=== PATIENT | female | born 1945 | race Caucasian/White ===

== ENCOUNTER → 2020-04-16 08:10 | Outpatient (CLI) | payer MEDICARE, OTHER, SELFPAY ==
--- NOTE | 2020-04-16 | DI.RAD.S_ITS ---
PROCEDURE: FL BARIUM SWALLOW W SPEECH INDICATIONS: Dysphagia COMPARISON: None. TECHNIQUE: Examination was conducted in conjunction with speech pathology per standard protocol. In the lateral projection, filming was performed of the patient swallowing. AP projection filming may also be performed with patient swallowing. COMPARISON: FINDINGS: Function: The oral preparatory phase appears normal, with proper containment. The subsequent oral propulsive phase, pharyngeal phase, and esophageal phase of swallowing also appear normal with all proffered substances. Single episode of laryngotracheal penetration noted during consumption of thin liquid. No laryngotracheal aspiration. No pathologic vallecular pooling. There is significant delayed passage of 13 millimeter barium tablet in the thoracic esophagus at the level of the aortic arch. Morphology: No cricopharyngeal bar is identified. No cervical esophageal webs. No Zenker's diverticulum. No strictures. IMPRESSION: 1. No laryngotracheal aspiration. 2. Significant delayed passage of 13 millimeter barium tablet through the esophagus at the level of the aortic arch. Recommend endoscopy to exclude esophageal stricture and CT scan of the chest with contrast to exclude extrinsic mass or aortic aneurysm. Dictated by: Nay Cortes MD, PhD on 04/16/2020 at 9:38 Approved by: Nay Cortes MD, PhD on 04/16/2020 at 9:40
--- NOTE | 2020-04-16 13:59 | ST.SWALLOW ---
Visit Care Team Role Provider Type Chela Garrett MD Primary Care Provider Non-Staff Specialty: Medical Address: [address] [place] [address], [place], [address] Email: Ellis Ruiz MD Attending Provider Physician Referring Provider Specialty: Ear, Nose, Throat Address: [address] [place] [address], [id number] Email: [email or web address] Modified Barium Swallow Study SPRINKLER WORKER Modified Barium Swallow Study Start: 04/16/20 10:00 Freq: Status: Active Protocol: Document 04/16/20 10:01 LL (Rec: 04/16/20 10:22 LL [email or web address]) Modified Barium Swallow Study Total Time Visit Start Time 08:30 Visit Stop Time 09:30 Total Visit Minutes 60 Visit Information Insurance Information [facility] Referral Referring Physician Ellis Ruiz MD Reason for Referral Dysphagia, unspecified; cough, and postnasal drip Setting Setting Outpatient Care Patient Information Identification Type Name,Date of ,ID Card Patient History Tamara Gan is a 75-year-old female, who was seen for an outpatient Modified Barium Swallow Study (MBSS) per MD order due to concerns for dysphagia. Per patient report, PMHx significant for history of thyroidectomy (6 years ago) , postnasal drip, cough, history of bilateral salpingo- oophorectomy with chemotherapy and radiation treatment ( within last 1-2 years), and worsening dysphagia over the last year. Patient reported frequent coughing with and without PO, increased coughing with thin liquids, and frequent globus sensation ( pocketing, sticking sensations ). Patient reported that her coughing episodes feel like her throat is going to rip out due to the intensity and effort needed to provide relief, resulting in increased vocal hoarseness. Subjective Observations Patient arrived on time and unaccompanied for this study. Patient alert, oriented x 4, and agreeable to participate in MBSS this care date. Patient denied any pain and or discomfort throughout study. Patient Positioning Position View Lat-A/P Imaging Lateral View Textures Administered Trials Presented Thin Liquid via Cup,Thin Liquid via Straw,[place] Liquid via Cup,Honey Liquid via Spoon,Pudding Thick Liquid via Spoon,Dysphagia Mechanical Textures,Regular Textures, Barium Tablet Oral Phase Source: MBSIMP (TM) (C) Bolus Specific Scoring Grid Lip Closure WFL Tongue Control During Bolus Hold WFL Bolus Prep/Mastication WFL Bolus Transport/Lingual Motion WFL A/P Lingual Propulsion Delay No Oral Residue Minimal Impairment Residue Clearing WFL Nasal Regurgitation No Additional Oral Phase Observations Adequate labial seal with no anterior loss or difficulty with labial acceptance visualized across all consistencies. Adequate oral bolus containment visualized with 10mL of thin liquid barium with bolus hold. Minimal oral residue of contrast observed post-swallow across all consistencies. Oral residue cleared with sequential dry swallows. Adequate mastication pattern visualized with dysphagia mechanical and regular solid trials. Pharyngeal Phase Source: MBSIMP (TM) (C) Bolus Specific Scoring Grid Delayed Initiation of Pharyngeal Swallow No Soft Palate Elevation WFL Tongue Base Strength/Range of Motion WFL Residue Along the Tongue Base Yes: Mild - cleared with sequential dry swallows Clearance of Residue Along Tongue Base WFL Laryngeal Elevation Mild Impairment Anterior Hyoid Movement Mild Impairment Epiglottic Range of Motion Mild Impairment Vallecular Residue Yes: Mild vallecular residue post-swallow Clearance of Vallecular Residue Minimal Impairment Laryngeal Vestibular Closure WFL Pharyngeal Stripping Wave Mild Impairment Pharyngeal Contraction Mild Impairment Posterior Pharyngeal Wall Residue Yes: trace residue - cleared with sequential dry swallows Clearance of Posterior Pharyngeal Wall WFL Residue Upper Esophageal Sphincter Opening WFL Residue in the Pyriform Sinuses Yes: Mild pyriform sinuses residue post-swallow Clearance of Residue in the Pyriform Minimal Impairment Sinuses Esophageal Clearance Upright Position Mild Impairment Pharyngoesophageal Backflow Observed Yes: Minimal Additional Pharyngeal Phase Observations Timely trigger of the pharyngeal swallow, as determined by the location of the head of the bolus at the moment of the initial hyoid burst. Pharyngeal triggered occurred at the level of the valleculae with 2 instances of pooling to the pyriforms during the swallow with thin liquid trials. Diminished pharyngeal stripping wave ( lateral and AP view) visualized with thin liquid trials. Visualized minimal posterior pharyngeal wall residue and mild vallecular and pyriform residue post- swallow with thin liquids. Minimal pharyngeal residue visualized with thicker consistencies primarily at the base of the valleculae due to incomplete epiglottic inversion. Visualized two anterior laryngeal pouches ( one above and one below the epiglottis) during the swallow with clearance / draining observed after initial swallow , increasing pharyngeal residue post-swallow. Utilization of double swallow / dry swallow assisted in clearing remaining pharyngeal residue from the two anterior laryngeal pouches visualized. Single episode of laryngotracheal penetration with full clearance visualized with thin liquid trial. No aspiration visualized across all consistencies. A/P View Textures Administered Trials Presented Thin Liquid via Cup,Barium Tablet A/P View Observations Pharyngeal Contraction Mild Impairment Esophageal Function Poor Motility Additional Observations Per MD report and SPRINKLER WORKER observation, significant delayed passage of 13 millimeter barium tablet through the esophagus at the level of the aortic arch visualized. Vocal fold function appeared to have been within functional limits. Clinical Impressions Dysphagia Type Mild oropharyngeal dysphagia Findings Patient currently presents with mild oropharyngeal dysphagia characterized by minimal oral residue (with all consistencies - cleared with sequential dry swallows), decreased laryngeal elevation, decreased laryngeal excursion , incomplete epiglottic inversion, diminished pharyngeal stripping wave, mild pharyngeal residue post- swallow, two anterior laryngeal pouches during the swallow with clearance / draining observed after initial swallow, and one single episode of penetration above the level of the vocal folds with full clearance with thin liquid trial. The patient is a mild aspiration risk due to above listed deficits. Risk mitigated given adherence to diet recommendations and PO precautions. SPRINKLER WORKER reviewed MBSS results in detail and recommended patient consume a general diet ( regular solids and thin liquids) with use of a double swallow with thin liquids to clear remaining pharyngeal residue after initial swallow. SPRINKLER WORKER recommended medications whole with thin liquid and / or medications whole in puree to assist in clearing tablet in esophagus (e.g., esophageal dysmotility visualized with whole barium tablet with water requiring multiple sips to clear tablet into stomach) and decrease / eliminate globus sensation. SPRINKLER WORKER recommended outpatient speech therapy to receive additional dysphagia training / education and further assessment of patient' s vocal fold functioning to determine appropriate treatment goals to improve patient's vocal quality. SPRINKLER WORKER reviewed and demonstrated several voice / vocal hygiene strategies (e.g., silent cough and nasal sniff / ?sh? audible exhale) to reduce hard vocal fold closure and improve patient?s overall vocal quality / health. SPRINKLER WORKER also provided patient with written education to increase understanding and adequate carryover of strategies. Patient verbalized understanding of education / training. Patient reported that she has several upcoming appointments and procedures, but would reach out later this year to begin speech therapy. Rehabilitation Potential Good Patient Appropriate for Therapy Yes: Recommend outpatient and/ or home health speech therapy Recommendations Diet Liquids Order Thin Diet Order Regular Medication Recommendation Whole,Whole in Carrier Aspiration Precautions Recommended Precautions Upright at 90 Degrees,Small Bites/Sips,Double Swallow Treatment Plan Therapy Recommendations Compensatory Strategy Education,GERD/Vocal Hygiene Education Recommended Referrals Primary Care Physician,GI Consult,ENT Consult Compensatory Strategies Recommendations Sitting Upright (90 deg), Double Swallow,Small Bites and Sips Additional Recommendations/Comments - ENT consult to visualize anatomy and physiology of the vocal folds given patient's hoarse vocal quality and poor vocal hygiene behaviors (e.g., frequent coughing and throat clearing). - GI consult to further assess patient's gastrointestinal tract due to esophageal dysmotility visualized with barium tablet. - Per radiologist's report, recommend endoscopy to exclude esophageal stricture and CT scan of the chest with contrast to exclude extrinsic mass or aortic aneurysm. - PCP to continue to follow their plan of care (POC).
--- NOTE | 2020-04-16 14:18 | ST.SWALLOW ---
Visit Care Team Role Provider Type Chela Garrett MD Primary Care Provider Non-Staff Specialty: Medical Address: [address] [place] [address], [place], [address] Email: Ellis Ruiz MD Attending Provider Physician Referring Provider Specialty: Ear, Nose, Throat Address: [address] [place] [address], [address] Email: [email or web address] Modified Barium Swallow Study MACHINE TURNER Modified Barium Swallow Study Start: 04/16/20 10:00 Freq: Status: Active Protocol: Document 04/16/20 10:01 LL (Rec: 04/16/20 10:22 LL [email or web address]) Modified Barium Swallow Study Total Time Visit Start Time 08:30 Visit Stop Time 09:30 Total Visit Minutes 60 Visit Information Insurance Information [facility] Referral Referring Physician Ellis Ruiz MD Reason for Referral Dysphagia, unspecified; cough, and postnasal drip Setting Setting Outpatient Care Patient Information Identification Type Name,Date of ,ID Card Patient History Tamara Gan is a 75-year-old female, who was seen for an outpatient Modified Barium Swallow Study (MBSS) per MD order due to concerns for dysphagia. Per patient report, PMHx significant for history of thyroidectomy (6 years ago) , postnasal drip, cough, history of bilateral salpingo- oophorectomy with chemotherapy and radiation treatment ( within last 1-2 years), and worsening dysphagia over the last year. Patient reported frequent coughing with and without PO, increased coughing with thin liquids, and frequent globus sensation ( pocketing, sticking sensations ). Patient reported that her coughing episodes feel like her throat is going to rip out due to the intensity and effort needed to provide relief, resulting in increased vocal hoarseness. Subjective Observations Patient arrived on time and unaccompanied for this study. Patient alert, oriented x 4, and agreeable to participate in MBSS this care date. Patient denied any pain and or discomfort throughout study. Patient Positioning Position View Lat-A/P Imaging Lateral View Textures Administered Trials Presented Thin Liquid via Cup,Thin Liquid via Straw,[place] Liquid via Cup,Honey Liquid via Spoon,Pudding Thick Liquid via Spoon,Dysphagia Mechanical Textures,Regular Textures, Barium Tablet Oral Phase Source: MBSIMP (TM) (C) Bolus Specific Scoring Grid Lip Closure WFL Tongue Control During Bolus Hold WFL Bolus Prep/Mastication WFL Bolus Transport/Lingual Motion WFL A/P Lingual Propulsion Delay No Oral Residue Minimal Impairment Residue Clearing WFL Nasal Regurgitation No Additional Oral Phase Observations Adequate labial seal with no anterior loss or difficulty with labial acceptance visualized across all consistencies. Adequate oral bolus containment visualized with 10mL of thin liquid barium with bolus hold. Minimal oral residue of contrast observed post-swallow across all consistencies. Oral residue cleared with sequential dry swallows. Adequate mastication pattern visualized with dysphagia mechanical and regular solid trials. Pharyngeal Phase Source: MBSIMP (TM) (C) Bolus Specific Scoring Grid Delayed Initiation of Pharyngeal Swallow No Soft Palate Elevation WFL Tongue Base Strength/Range of Motion WFL Residue Along the Tongue Base Yes: Mild - cleared with sequential dry swallows Clearance of Residue Along Tongue Base WFL Laryngeal Elevation Mild Impairment Anterior Hyoid Movement Mild Impairment Epiglottic Range of Motion Mild Impairment Vallecular Residue Yes: Mild vallecular residue post-swallow Clearance of Vallecular Residue Minimal Impairment Laryngeal Vestibular Closure WFL Pharyngeal Stripping Wave Mild Impairment Pharyngeal Contraction Mild Impairment Posterior Pharyngeal Wall Residue Yes: trace residue - cleared with sequential dry swallows Clearance of Posterior Pharyngeal Wall WFL Residue Upper Esophageal Sphincter Opening WFL Residue in the Pyriform Sinuses Yes: Mild pyriform sinuses residue post-swallow Clearance of Residue in the Pyriform Minimal Impairment Sinuses Esophageal Clearance Upright Position Mild Impairment Pharyngoesophageal Backflow Observed Yes: Minimal Additional Pharyngeal Phase Observations Timely trigger of the pharyngeal swallow, as determined by the location of the head of the bolus at the moment of the initial hyoid burst. Pharyngeal triggered occurred at the level of the valleculae with 2 instances of pooling to the pyriforms during the swallow with thin liquid trials. Diminished pharyngeal stripping wave ( lateral and AP view) visualized with thin liquid trials. Visualized minimal posterior pharyngeal wall residue and mild vallecular and pyriform residue post- swallow with thin liquids. Minimal pharyngeal residue visualized with thicker consistencies primarily at the base of the valleculae due to incomplete epiglottic inversion. Visualized two anterior laryngeal pouches ( one above and one below the epiglottis) during the swallow with clearance / draining observed after initial swallow , increasing pharyngeal residue post-swallow. Utilization of double swallow / dry swallow assisted in clearing remaining pharyngeal residue from the two anterior laryngeal pouches visualized. Single episode of laryngotracheal penetration with full clearance visualized with thin liquid trial. No aspiration visualized across all consistencies. A/P View Textures Administered Trials Presented Thin Liquid via Cup,Barium Tablet A/P View Observations Pharyngeal Contraction Mild Impairment Esophageal Function Poor Motility Additional Observations Per MD report and MACHINE TURNER observation, significant delayed passage of 13 millimeter barium tablet through the esophagus at the level of the aortic arch visualized. Vocal fold function appeared to have been within functional limits. Clinical Impressions Dysphagia Type Mild oropharyngeal dysphagia Findings Patient currently presents with mild oropharyngeal dysphagia characterized by minimal oral residue (with all consistencies - cleared with sequential dry swallows), decreased laryngeal elevation, decreased laryngeal excursion , incomplete epiglottic inversion, diminished pharyngeal stripping wave, mild pharyngeal residue post- swallow, two anterior laryngeal pouches during the swallow with clearance / draining observed after initial swallow, and one single episode of penetration above the level of the vocal folds with full clearance with thin liquid trial. The patient is a mild aspiration risk due to above listed deficits. Risk mitigated given adherence to diet recommendations and PO precautions. MACHINE TURNER reviewed MBSS results in detail and recommended patient consume a general diet ( regular solids and thin liquids) with use of a double swallow with thin liquids to clear remaining pharyngeal residue after initial swallow. MACHINE TURNER recommended medications whole with thin liquid and / or medications whole in puree to assist in clearing tablet in esophagus (e.g., esophageal dysmotility visualized with whole barium tablet with water requiring multiple sips to clear tablet into stomach) and decrease / eliminate globus sensation. MACHINE TURNER recommended outpatient speech therapy to receive additional dysphagia training / education and further assessment of patient' s vocal fold functioning to determine appropriate treatment goals to improve patient's vocal quality. MACHINE TURNER reviewed and demonstrated several voice / vocal hygiene strategies (e.g., silent cough and nasal sniff / ?sh? audible exhale) to reduce hard vocal fold closure and improve patient?s overall vocal quality / health. MACHINE TURNER also provided patient with written education to increase understanding and adequate carryover of strategies. Patient verbalized understanding of education / training. Patient reported that she has several upcoming appointments and procedures, but would reach out later this year to begin speech therapy. Rehabilitation Potential Good Patient Appropriate for Therapy Yes: Recommend outpatient and/ or home health speech therapy Recommendations Diet Liquids Order Thin Diet Order Regular Medication Recommendation Whole,Whole in Carrier Aspiration Precautions Recommended Precautions Upright at 90 Degrees,Small Bites/Sips,Double Swallow Treatment Plan Therapy Recommendations Compensatory Strategy Education,GERD/Vocal Hygiene Education Recommended Referrals Primary Care Physician,GI Consult,ENT Consult Compensatory Strategies Recommendations Sitting Upright (90 deg), Double Swallow,Small Bites and Sips Additional Recommendations/Comments - ENT consult to visualize anatomy and physiology of the vocal folds given patient's hoarse vocal quality and poor vocal hygiene behaviors (e.g., frequent coughing and throat clearing). - GI consult to further assess patient's gastrointestinal tract due to esophageal dysmotility visualized with barium tablet. - Per radiologist's report, recommend endoscopy to exclude esophageal stricture and CT scan of the chest with contrast to exclude extrinsic mass or aortic aneurysm. - PCP to continue to follow their plan of care (POC).
== END ==
PROVIDERS: PCP Family Medicine; Referring Provider Otolaryngology; Visit Provider Otolaryngology
DX: R13.10 Dysphagia, unspecified (principal)
CPT/HCPCS: 74230; 92526; 92611